=== PATIENT | female | born 1970 | race African-American/Black ===

== ENCOUNTER 2016-09-20 00:55 | Emergency (ER) | payer OTHER ==
[2016-09-20 01:04] VITALS: BP 117/71
--- NOTE | 2016-09-20 01:15 | PROVIDER DOCUMENTATION ---
[facility] General - General Chief Complaint: Eye Complaint Stated Complaint: EYE COMPLAINT Time Seen by Provider: 09/20/16 01:12 Source: patient Unable to obtain history due to:: urgency Allergies/Adverse Reactions: Patient Allergies Allergy/AdvReac Type Severity Reaction Status Date / Time Sulfa (Sulfonamide Allergy Mild itchy Verified 09/20/16 01:04 Antibiotics) Home Medications: Home Medication List Medication Instructions Recorded Confirmed Last Taken Type Clindamycin HCl 300 mg PO 4XDAY #40 capsule 09/20/16 Unknown Rx Erythromycin Oph Ointment 1 applicatn BOTH EYES 4XDAY #1 tube 09/20/16 Unknown Rx - History of Present Illness-EENT General EENT Location: reports: eye (R), eye (L) Quality of Pain: reports: aching Severity: reports: mild Onset/Duration: reports: unsure Timing: reports: still present Prearrival Treatment: Initiated no prearrival treatment Associated Symptoms: reports: denies symptoms Other injuries?: reports: head Locality of Occurance: Home Similar Symptoms Previously?: Yes Recently seen or treated by another doctor?: Yes - Eyes Eye Problem Symptoms: reports: eye pain Apparent Injury?: No Eyes washed at the scene?: No Eye Wear at the time of injury:: reports: protective glasses - Ears Ear Problem Symptoms: reports: none Ear Problem Context: reports: none - Nose Nose Problem Symptoms: lightheaded - Throat/Dental Throat/Dental Problem Symptoms: reports: none Recently seen a dentist or have an appointment?: Yes Review of Systems - Adult - REVIEW OF SYSTEMS - ADULT Constitutional: reports: no symptoms reported Eyes: reports: no symptoms reported Ears, Nose, Mouth & Throat: reports: no symptoms reported Cardiovascular: reports: no symptoms reported Respiratory: reports: no symptoms reported Gastrointestinal: reports: no symptoms reported Genitourinary: reports: no symptoms reported Musculoskeletal: reports: no symptoms reported Integumentary: reports: no symptoms reported Neurological: reports: no symptoms reported Psychiatric: reports: no symptoms reported Endocrine: reports: no symptoms reported Hematologic/Lymphatic: reports: no symptoms reported Allergic/Immunologic: reports: no symptoms reported All Other Systems: Reviewed and Negative Past History - Adult - PAST MEDICAL HISTORY-ADULT Review of Records: reports: Old Records Reviewed, Nursing Assessment Review, Medications Reviewed, Social history reviewed & non-contributory. Major Childhood Illnesses: reports: denies history Cardiovascular: reports: denies history Respiratory: reports: denies history Gastrointestinal: reports: denies history Obstetrical/Gynecological: reports: denies history Genitourinary: reports: denies history Musculoskeletal: reports: arthritis Neurological: reports: denies history Psychiatric: reports: bipolar, depression Endocrine/Immune: reports: denies history Other Conditions: reports: denies history - PRIOR SURGERIES/PROCEDURES Surgical/Procedure History: reports: BTL - IMMUNIZATION STATUS Childhood Immunizations: UTD Flu Vaccine: See Nurse Assessment - FAMILY HISTORY Family History: HTN Physical Exam- EENT - Physical Exam EENT Initial Vital Signs Reviewed: Yes General Appearance: appears well, alert Eye Exam: bilateral eye: PERRL, EOMI Nasal Exam: normal inspection Throat Exam: normal mouth inspection Neck: non-tender Respiratory: chest non-tender Cardiovascular: normal peripheral pulses Abdominal Exam: normal bowel sounds Lymphatic: no adenopathy Back Exam: no CVA tenderness Extremity: normal range of motion 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
[2016-09-20] MEDS ORDERED: CLEOCIN PO ONE (01:22)
[2016-09-20] MEDS ORDERED: CLEOCIN ONE (01:24)
== END 2016-09-20 01:28 | disposition home or self-care (01) ==
LOC: P.ED 00:55
DX: H10.9 Unspecified conjunctivitis (principal); H57.13 Ocular pain, bilateral
CPT/HCPCS: 99283